=== PATIENT | female | born 1965 | race Caucasian/White ===

== ENCOUNTER 2021-12-31 20:33 | Observation (INO) | payer OTHER ==
[2021-12-31 21:01] LABS: Basophils # (A) 0.1 k/uL (0-0.2); Basophils % (A) 1 %; Eosinophils # (A) 1.5 k/uL (0-0.7); Eosinophils % (A) 13 %; HCT 42.3 % (34.0-46.0); HGB 14.1 gm/dL (11.4-16.0); Lymphocytes # (A) 2.8 k/uL (1.0-4.8); Lymphocytes % (A) 26 %; MCH 28.6 pg (25.0-35.0); MCHC 33.3 g/dL (31.0-37.0); MCV 85.7 fL (80.0-100.0); Mean Platelet Volume 7.7; Monocytes # (A) 0.4 k/uL (0-1.0); Monocytes % (A) 3 %; Neutrophils # (A) 6.2 k/uL (1.3-7.7); Neutrophils % (A) 56 %; Platelet Count 377 k/uL (150-450); RBC 4.94 m/uL (3.80-5.40); RDW 13.3 % (11.5-15.5)
[2021-12-31 21:09] LABS: Albumin 4.4 g/dL (3.5-5.0); Calcium 9.8 mg/dL (8.4-10.2); Magnesium 1.8 mg/dL (1.6-2.3); Potassium 3.2 mmol/L (3.5-5.1); Total Bilirubin 0.5 mg/dL (0.2-1.3); Total Protein 7.4 g/dL (6.3-8.2)
--- NOTE | 2021-12-31 21:19 | ED ---
General Adult HPI - General Chief complaint: Chest Pain Stated complaint: Chest Pain Time Seen by Provider: 12/31/21 20:36 Source: patient, EMS, RN notes reviewed, old records reviewed Mode of arrival: EMS Limitations: no limitations - History of Present Illness Initial comments: 56-year-old female presenting with an episode of chest pain. Patient was at rest at home when she developed substernal chest pressure and pain. This radiated to both of her shoulders. Was associated with nausea and diaphoresis. She was given aspirin nitroglycerin during transport and pain is improved at the time my evaluation. She states she feels almost completely normal now. She has no previous history of CAD. She is a nondiabetic, nonsmoker. - Related Data Allergies Allergy/AdvReac Type Severity Reaction Status Date / Time No Known Allergies Allergy Verified 12/31/21 20:55 Review of Systems ROS Statement: Those systems with pertinent positive or pertinent negative responses have been documented in the HPI. ROS Other: All systems not noted in ROS Statement are negative. Past Medical History Past Medical History: No Reported History History of Any Multi-Drug Resistant Organisms: None Reported Past Surgical History: Cholecystectomy, Hysterectomy Past Psychological History: Depression Smoking Status: Never smoker Past Alcohol Use History: None Reported Past Drug Use History: None Reported General Exam Limitations: no limitations General appearance: alert, in no apparent distress Head exam: Present: atraumatic, normocephalic Eye exam: Present: normal appearance, PERRL ENT exam: Present: normal exam Neck exam: Present: normal inspection. Absent: tenderness, meningismus Respiratory exam: Present: normal lung sounds bilaterally. Absent: respiratory distress, wheezes Cardiovascular Exam: Present: regular rate, normal rhythm GI/Abdominal exam: Present: soft. Absent: distended, tenderness Extremities exam: Present: normal inspection, normal capillary refill. Absent: pedal edema Neurological exam: Present: alert, oriented X3, CN II-XII intact. Absent: motor sensory deficit Psychiatric exam: Present: normal affect, normal mood Skin exam: Present: warm, dry, intact. Absent: cyanosis, diaphoretic Course Vital Signs 12/31/21 20:52 Temperature 98.2 F Pulse Rate 77 Respiratory 16 Rate Blood Pressure 154/100 O2 Sat by Pulse 95 Oximetry EKG Findings - EKG Comments: EKG Findings:: EKG: Sinus rhythm, incomplete right bundle-branch block, rate of 84, NC interval 136, QRS duration 94, QTC 447, no ST segment elevation. Medical Decision Making - Medical Decision Making 56 yo female presents with an episode of substernal chest pain. Pain has typical features. Resolved with time my evaluation. EKG is sinus rhythm without ST segment elevation. Chest x-ray clear. She has relatively normal laboratory testing. Negative initial troponin, negative d-dimer. Patient's pain began just prior to arrival. She will be kept in observation for serial cardiac enzymes, telemetry, cardiology consultation, case discussed with Dr. Flores - Lab Data Result diagrams: 12/31/21 20:46 12/31/21 20:46 Lab Results 12/31/21 12/31/21 12/31/21 Range/Units 20:46 20:46 20:46 WBC 11.0 H (3.8-10.6) k/uL RBC 4.94 (3.80-5.40) m/uL Hgb 14.1 (11.4-16.0) gm/dL Hct 42.3 (34.0-46.0) % MCV 85.7 (80.0-100.0) fL MCH 28.6 (25.0-35.0) pg MCHC 33.3 (31.0-37.0) g/dL RDW 13.3 (11.5-15.5) % Plt Count 377 (150-450) k/uL MPV 7.7 Neutrophils % 56 % Lymphocytes % 26 % Monocytes % 3 % Eosinophils % 13 % Basophils % 1 % Neutrophils # 6.2 (1.3-7.7) k/uL Lymphocytes # 2.8 (1.0-4.8) k/uL Monocytes # 0.4 (0-1.0) k/uL Eosinophils # 1.5 H (0-0.7) k/uL Basophils # 0.1 (0-0.2) k/uL PT 10.8 (9.0-12.0) sec INR 1.0 (<1.2) APTT 21.5 L (22.0-30.0) sec D-Dimer 0.21 (<0.60) mg/L FEU Sodium 136 L (137-145) mmol/L Potassium 3.2 L (3.5-5.1) mmol/L Chloride 105 (98-107) mmol/L Carbon Dioxide 19 L (22-30) mmol/L Anion Gap 12 mmol/L BUN 16 (7-17) mg/dL Creatinine 1.00 (0.52-1.04) mg/dL Est GFR (CKD-EPI)AfAm 73 (>60 ml/min/1.73 sqM) Est GFR (CKD-EPI)NonAf 64 (>60 ml/min/1.73 sqM) Glucose 146 H (74-99) mg/dL Calcium 9.8 (8.4-10.2) mg/dL Magnesium 1.8 (1.6-2.3) mg/dL Total Bilirubin 0.5 (0.2-1.3) mg/dL AST 40 H (14-36) U/L ALT 71 H (4-34) U/L Alkaline Phosphatase 98 (38-126) U/L Troponin I (0.000-0.034) ng/mL Total Protein 7.4 (6.3-8.2) g/dL Albumin 4.4 (3.5-5.0) g/dL Lipase 148 (23-300) U/L 12/31/21 Range/Units 20:46 WBC (3.8-10.6) k/uL RBC (3.80-5.40) m/uL Hgb (11.4-16.0) gm/dL Hct (34.0-46.0) % MCV (80.0-100.0) fL MCH (25.0-35.0) pg MCHC (31.0-37.0) g/dL RDW (11.5-15.5) % Plt Count (150-450) k/uL MPV Neutrophils % % Lymphocytes % % Monocytes % % Eosinophils % % Basophils % % Neutrophils # (1.3-7.7) k/uL Lymphocytes # (1.0-4.8) k/uL Monocytes # (0-1.0) k/uL Eosinophils # (0-0.7) k/uL Basophils # (0-0.2) k/uL PT (9.0-12.0) sec INR (<1.2) APTT (22.0-30.0) sec D-Dimer (<0.60) mg/L FEU Sodium (137-145) mmol/L Potassium (3.5-5.1) mmol/L Chloride (98-107) mmol/L Carbon Dioxide (22-30) mmol/L Anion Gap mmol/L BUN (7-17) mg/dL Creatinine (0.52-1.04) mg/dL Est GFR (CKD-EPI)AfAm (>60 ml/min/1.73 sqM) Est GFR (CKD-EPI)NonAf (>60 ml/min/1.73 sqM) Glucose (74-99) mg/dL Calcium (8.4-10.2) mg/dL Magnesium (1.6-2.3) mg/dL Total Bilirubin (0.2-1.3) mg/dL AST (14-36) U/L ALT (4-34) U/L Alkaline Phosphatase (38-126) U/L Troponin I <0.012 (0.000-0.034) ng/mL Total Protein (6.3-8.2) g/dL Albumin (3.5-5.0) g/dL Lipase (23-300) U/L Disposition Clinical Impression: Chest pain Disposition: ADMITTED IP TO THIS [facility] Condition: Stable Is patient prescribed a controlled substance at d/c from ED?: No Referrals: None,Stated [Primary Care Provider] - 1-2 days Decision to Admit Reason: Admit from EC Decision Date: 12/31/21 Decision Time: 21:44
[2021-12-31 21:20] LABS: Partial Thromboplastin Time 21.5 sec (22.0-30.0); Prothrombin Time 10.8 sec (9.0-12.0)
--- NOTE | 2021-12-31 21:24 | XR ---
EXAMINATION TYPE: XR chest 2V DATE OF EXAM: 12/31/2021 COMPARISON: NONE HISTORY: Chest pain TECHNIQUE: 2 views FINDINGS: There is mild subsegmental atelectasis in the mid and lower lung cates. Heart size is norm al. There are no hilar masses. There are chest leads. Costophrenic angles are clear. IMPRESSION: Subsegmental atelectasis. Normal heart.
[2021-12-31] MEDS ORDERED: NALOXONE 0.4 MG/ML 1 ML VIAL IV PRN (21:36)
[2021-12-31] MEDS ORDERED: ONDANSETRON 4 MG/2 ML VIAL IVP PRN (21:36)
[2021-12-31] MEDS ORDERED: MORPHINE SULFATE 4 MG/ML SYRINGE IV PRN (21:36)
[2021-12-31] MEDS ORDERED: ACETAMINOPHEN TAB 325 MG TAB PO PRN (21:36)
--- NOTE | 2022-01-01 02:12 | P.HPIM ---
History of Present Illness H&P Date: 01/01/22 Patient is a 56-year-old female with a distant tobacco abuse history who presented to the emergency room with complaints of chest discomfort. The patient reports that she was at home and had completed her dinner with her family when she suddenly developed a pressure-like squeezing substernal chest discomfort, 10 out of 10, nonpleuritic, radiating to her shoulders, with associated diaphoresis, nausea, and lightheadedness. The discomfort lasted for roughly 10 minutes and then resolved spontaneously. She denied associated shortness of breath or palpitations. She denied any prior history of such pain. Denied any history of heart disease. He reports feeling back to her baseline at the time of evaluation. She was given aspirin as well as sublingual nitroglycerin en-route to the hospital which reportedly didn't improve her symptoms. She reports having smoked a few cigarettes a day for 10 years in her 20s and 30s. She denied any significant family history of heart disease. Denied experiencing fever, chills, cough, abdominal pain, diarrhea. EKG in the emergency room revealed sinus rhythm at 84 bpm with an incomplete right bundle- branch block as well as T-wave inversions in leads V1 and V2. Laboratory evaluation revealed a leukocytosis with WBC count 11.0, potassium 3.2, glucose 146, d-dimer 0.01, troponin less than 0.012, AST 40, and ALT 71. Review of systems: Pertinent positives and negatives as discussed in HPI, a complete review of systems was performed and all other systems are negative. Physical examination: General: non toxic, no distress, appears at stated age, obese Derm: no unusual rashes/lesions no unusual ecchymoses, warm, dry Head: atraumatic, normocephalic, symmetric Eyes: EOMI, no lid lag, anicteric sclera, pupils equal round reactive to light ENT: Nose and ears atraumatic, no thrush, no pharyngeal erythema Neck: No thyromegaly, no cervical lymphadenopathy, trachea midline, supple Mouth: no lip lesion, mucus membranes moist Cardiovascular: S1S2 reg, no murmur, positive posterior tibial pulse bilateral, no edema, capillary refill less than 2 seconds Lungs: CTA bilateral, no rhonchi, no rales , no accessory muscle use Abdominal: soft, nontender to palpation, no guarding, no appreciable organomegaly, normal bowel sounds Ext: no gross muscle atrophy, muscle strength 5 out of 5 in all 4 extremities grossly, no contractures, Neuro: CN II-XI grossly intact, light touch intact all 4 extremities, finger to nose within normal limits, Psych: Alert, oriented, appropriate affect Assessment/plan Chest pain, rule out ACS -Cardiology consulted -Trend troponin -Cardiac monitoring -Continue with aspirin and lipitor Hypokalemia -Replace and monitor Leukocytosis -No signs of active infection at this time -Likely due to acute stressor Abnormal LFTs -Monitor for now -Denied any alcohol use DVT prophylaxis -Heparin subcu The patient is admitted with an anticipated less than 2 midnight stay for evaluation of chest pain CODE STATUS: Full Code Discussed with: Patient Anticipated discharge date: in am Anticipated discharge place: Home Past Medical History Past Medical History: No Reported History History of Any Multi-Drug Resistant Organisms: None Reported Past Surgical History: Cholecystectomy, Hysterectomy Past Psychological History: Depression Smoking Status: Never smoker Past Alcohol Use History: None Reported Past Drug Use History: None Reported Medications and Allergies Home Medications Medication Instructions Recorded Confirmed Type DULoxetine HCL [Cymbalta] 30 mg PO HS 12/31/21 12/31/21 History Allergies Allergy/AdvReac Type Severity Reaction Status Date / Time No Known Allergies Allergy Verified 12/31/21 22:48 Physical Exam Vitals: Vital Signs Temp Pulse Resp BP Pulse Ox 12/31/21 23:36 72 16 128/86 95 12/31/21 22:02 92 18 141/93 92 L 12/31/21 20:52 98.2 F 77 16 154/100 95 Intake and Output 12/31/21 12/31/21 01/01/22 14:59 22:59 06:59 Other: Weight 99.79 kg Results CBC & Chem 7: 12/31/21 20:46 12/31/21 20:46 Labs: Abnormal Lab Results - Last 24 Hours (Table) 12/31/21 12/31/21 12/31/21 Range/Units 20:46 20:46 20:46 WBC 11.0 H (3.8-10.6) k/uL Eosinophils # 1.5 H (0-0.7) k/uL APTT 21.5 L (22.0-30.0) sec Sodium 136 L (137-145) mmol/L Potassium 3.2 L (3.5-5.1) mmol/L Carbon Dioxide 19 L (22-30) mmol/L Glucose 146 H (74-99) mg/dL AST 40 H (14-36) U/L ALT 71 H (4-34) U/L
[2022-01-01] MEDS ORDERED: POTASSIUM CHLORIDE ER 20 MEQ TAB.ER PO STA (02:13)
[2022-01-01 02:53] LABS: HCT 43.3 % (34.0-46.0); HGB 14.2 gm/dL (11.4-16.0); MCH 28.4 pg (25.0-35.0); MCHC 32.9 g/dL (31.0-37.0); MCV 86.6 fL (80.0-100.0); Mean Platelet Volume 7.7; Platelet Count 376 k/uL (150-450); RDW 12.9 % (11.5-15.5)
[2022-01-01] MEDS ORDERED: HEPARIN SODIUM,PORCINE/PF 5,000 UNIT/0.5 ML SYRINGE SQ SCH (08:00)
[2022-01-01] MEDS ORDERED: ASPIRIN 81 MG PO SCH (09:00)
[2022-01-01 09:36] LABS: ALT 77 U/L (8-44); AST 27 U/L (13-35); Albumin 4.4 g/dL (3.8-4.9); Albumin/Globulin Ratio 1.83 (1.60-3.17); Alkaline Phosphatase 115 U/L (41-126); Blood Urea Nitrogen 16.5 mg/dL (9.0-27.0); Calcium 10.1 mg/dL (8.7-10.3); Carbon Dioxide 24.4 mmol/L (20.0-27.5); Chloride 101 mmol/L (96-109); Chol/HDL Ratio 4.49 Ratio; Globulin 2.4 g/dL (1.6-3.3); Glucose 117 mg/dL (70-110); LDL Cholesterol,Calculated 141.3 mg/dL (0.0-131.0); Non-African American GFR(CKD) 56.1 (60.0-200.0); Potassium 3.5 mmol/L (3.5-5.5); Sodium 139 mmol/L (135-145); Total Bilirubin <0.15 mg/dL (0.30-1.20); Total Protein 6.8 g/dL (6.2-8.2)
--- NOTE | 2022-01-01 09:51 | P.CRDCN ---
History of Present Illness Consult date: 01/01/22 History of present illness: HISTORY OF PRESENT ILLNESS: This is a 56-year-old female with a past medical history significant for depression and cholecystectomy. Patient does not follow with a motor lodge clerk. We have been asked to see the patient in consultation for chest pain. Patient examined at the bedside. Patient states yesterday she had a hamburger for dinner when shortly afterwards she began having abdominal pain. She states the pain then went up and her chest. She describes the pain as a tight squeezing sensation. She reports feeling bloated and nauseated. She also reported feeling short of breath and diaphoretic. She thought she was going to throw up so she went into the bathroom and called EMS. She states that when EMS got there they put oxygen on her and she began to feel better. At the time of examination this morning, the patient denies any chest pain or pressure. EKG reveals sinus mechanism with no signs of acute ischemia Chest xray subsegmental atelectasis. Normal heart. Laboratory data: WBC 11.0. Hemoglobin 14.2. Platelet count 376. D-dimer 0.21. Sodium 139. Potassium 3.5. BUN 16. Creatinine 1.1. Troponin negative 3. Current home cardiac medications include none REVIEW OF SYSTEMS: At the time of my exam: CONSTITUTIONAL: Denies fever or chills. HEENT: Denies blurred vision, vision changes, or eye pain. Denies hemoptysis CARDIOVASCULAR: Denies chest pain. Denies orthopnea. Denies PND. Denies palpitations RESPIRATORY: Denies shortness of breath. GASTROINTESTINAL: Denies abdominal pain. Denies nausea or vomiting. HEMATOLOGIC: Denies bleeding disorders. GENITOURINARY: Denies any blood in urine. SKIN: Denies pruitis. Denies rash. PHYSICAL EXAM: VITAL SIGNS: Reviewed. GENERAL: Well-developed in no acute distress. HEENT: Head is normocephalic. Pupils are equal, round. Sclerae anicteric. Mucous membranes of the mouth are moist. Neck supple. No JVD or thyromegaly LUNGS: Respirations even and unlabored. Lungs essentially clear to auscultation bilaterally. HEART: Regular rate and rhythm. S1 and S2 heard. ABDOMEN: Soft. Nondistended. Nontender. EXTREMITIES: Normal range of motion. No clubbing or cyanosis. Peripheral pulses intact. No lower extremity edema NEUROLOGIC: Awake and alert. Oriented x 3. ASSESSMENT: Chest pain Hyperlipidemia Depression History of cholecystectomy PLAN: An acute coronary event has been ruled out Begin atorvastatin 20 mg daily Obtain 2-D echo to assess cardiac structure and function Patient to undergo stress echo today Further recommendations pending patient course Nurse practitioner note has been reviewed by physician. Signing provider agrees with the documented findings, assessment, and plan of care. Past Medical History Past Medical History: No Reported History History of Any Multi-Drug Resistant Organisms: None Reported Past Surgical History: Cholecystectomy, Hysterectomy Past Psychological History: Depression Smoking Status: Never smoker Past Alcohol Use History: None Reported Past Drug Use History: None Reported Medications and Allergies Home Medications Medication Instructions Recorded Confirmed Type DULoxetine HCL [Cymbalta] 30 mg PO HS 12/31/21 12/31/21 History Allergies Allergy/AdvReac Type Severity Reaction Status Date / Time No Known Allergies Allergy Verified 12/31/21 22:48 Physical Exam Vitals: Vital Signs Temp Pulse Resp BP Pulse Ox 01/01/22 04:22 92 16 111/85 98 12/31/21 23:36 72 16 128/86 95 12/31/21 22:02 92 18 141/93 92 L 12/31/21 20:52 98.2 F 77 16 154/100 95 Intake and Output 12/31/21 01/01/22 01/01/22 22:59 06:59 14:59 Other: Weight 99.79 kg Results 01/01/22 02:39 01/01/22 02:39 Cardiac Enzymes 12/31/21 12/31/21 01/01/22 Range/Units 20:46 20:46 00:12 AST 40 H (14-36) U/L Troponin I <0.012 <0.012 (0.000-0.034) ng/mL 01/01/22 Range/Units 02:39 AST (14-36) U/L Troponin I <0.012 (0.000-0.034) ng/mL Coagulation 12/31/21 Range/Units 20:46 PT 10.8 (9.0-12.0) sec APTT 21.5 L (22.0-30.0) sec CBC 12/31/21 01/01/22 Range/Units 20:46 02:39 WBC 11.0 H 11.0 H (3.8-10.6) k/uL RBC 4.94 5.00 (3.80-5.40) m/uL Hgb 14.1 14.2 (11.4-16.0) gm/dL Hct 42.3 43.3 (34.0-46.0) % Plt Count 377 376 (150-450) k/uL Comprehensive Metabolic Panel 12/31/21 Range/Units 20:46 Sodium 136 L (137-145) mmol/L Potassium 3.2 L (3.5-5.1) mmol/L Chloride 105 (98-107) mmol/L Carbon Dioxide 19 L (22-30) mmol/L BUN 16 (7-17) mg/dL Creatinine 1.00 (0.52-1.04) mg/dL Glucose 146 H (74-99) mg/dL Calcium 9.8 (8.4-10.2) mg/dL AST 40 H (14-36) U/L ALT 71 H (4-34) U/L Alkaline Phosphatase 98 (38-126) U/L Total Protein 7.4 (6.3-8.2) g/dL Albumin 4.4 (3.5-5.0) g/dL Current Medications Generic Name Dose Route Start Last Admin Trade Name Freq PRN Reason Stop Dose Admin Acetaminophen 650 mg 12/31/21 21:36 Acetaminophen Tab 325 Mg Tab PO Q6HR PRN Mild Pain or Fever > 100.5 Aspirin 81 mg 01/01/22 09:00 Aspirin 81 Mg PO DAILY [facility] Heparin Sodium (Porcine) 5,000 unit 01/01/22 08:00 Heparin Sodium,Porcine/Pf 5,000 Unit/0.5 Ml Syringe SQ Q8HR [facility] Morphine Sulfate 4 mg 12/31/21 21:36 Morphine Sulfate 4 Mg/Ml Syringe IV Q4HR PRN Severe Pain Naloxone HCl 0.2 mg 12/31/21 21:36 Naloxone 0.4 Mg/Ml 1 Ml Vial IV Q2M PRN Opioid Reversal Ondansetron HCl 4 mg 12/31/21 21:36 Ondansetron 4 Mg/2 Ml Vial IVP Q8HR PRN Nausea And Vomiting Intake and Output 12/31/21 01/01/22 01/01/22 22:59 06:59 14:59 Other: Weight 99.79 kg 01/01/22 02:39 12/31/21 20:46
[2022-01-01 10:05] VITALS: RESP 18
--- NOTE | 2022-01-01 11:11 | P.PN ---
<Rasta Rankin - Last Filed: 01/01/22 11:14> Subjective Progress Note Date: 01/01/22 Hospital course: Patient is a very pleasant 56-year-old female with a past medical history of depression whom presented to the emergency department on 12/31/21 with a chief complaint of chest pain. She reports while sitting on the couch watching a movie with her she began feeling an upset feeling in her stomach accompanied by a twisting pressure-like sensation to the middle of her chest as though somebody was squeezing her from the inside accompanied by nausea, shortness of breath, and diaphoresis. Patient reports this pain lasted approximately 3 minutes before she knew something was absolutely wrong as she reports feeling as though she was going to vomit and passed out all at the same time and this is when her called EMS. Patient states after EMS arrived and placed her on some oxygen the pain in her chest began to subside and she began to feel better. Patient reports complete resolution of pain or any other complaints since arrival to the emergency department. Patient denies having a cardiac history or being seen previously by a fly frame tender. She also reports that she does not follow consistently with a primary care doctor. In the emergency department patient underwent evaluation. She was found to have slight leukocytosis with WBC count of 11.0 and hypokalemia with potassium of 3.2. Chest x-ray revealing subsegmental atelectasis with no signs of acute cardiopulmonary process. EKG showing normal sinus rhythm at 84 bpm with no noted T wave or ST abnormality showing no signs of acute ischemia. Troponins trended 3 all resulting in less than 0.012. Patient has been admitted under our services with consultation to cardiology. Patient currently reports having a slight headache, but remains free from chest pain or any other complaints including dizziness, lightheadedness, changes in vision or hearing, palpitations, shortness of breath, abdominal pain, nausea, vomiting, or experiencing any numbness/tingling/weakness in her extremities. Physical exam: Vital signs reviewed and stable. General: Nontoxic, no distress and appears stated age. Derm: Skin warm and dry, normal coloration for ethnicity. Head: Atraumatic, normocephalic and symmetric. Eyes: EOMs intact, no lid lag, and anicteric sclera Mouth: no lip lesions, mucus membranes moist Cardiovascular: regular rate and rhythm with normal S1S2, no murmur, positive posterior tibial pulses bilaterally, and cap refill < 2 seconds. Lungs: Respirations even, regular, and unlabored on room air. Lungs CTA bilaterally, no rhonchi, no rales, no wheezing, and no accessory muscle usage. Abdominal: soft, nontender to palpation, no guarding, no appreciable organomegaly Ext: ROM intact. No gross muscle atrophy, no edema, no contractures Neuro: Speech clear, face symmetrical and CN II-XII grossly intact with no noted focal neuro deficits Psych: Alert and oriented to person, place, time, and situation. Appropriate and pleasant affect. Assessment and Plan of Care: Chest pain, rule out ACS -Troponins trended 3 all resulting less than 0.012. -Hemoglobin A1c 6.2% -Lipid profile revealing an elevated total cholesterol of 209 and an elevated LDL of 141.3. -Patient to continue aspirin and atorvastatin. -Cardiology following, plans for stress test later today. -Echocardiogram to be completed -Telemetry monitoring Hyperlipidemia -Newly diagnosed with total cholesterol of 209 and LDL of 141.3. -Patient started on atorvastatin 40 mg daily along with aspirin 81 mg daily. Depression -Continue daily medication regimen with the Loxitane 30 mg nightly. Hypokalemia, resolved. Abnormal LFTs, improving CODE STATUS: Full code DVT prophylaxis: Heparin Discussed with: Patient and RN Anticipated discharge date: 1-2 days pending results of stress test and recommendations from cardiology Anticipated discharge place: home A total of 35 minutes was spent on the care of this complex patient more than 50% of the time was spent in counseling and care coordination. Objective - Vital Signs Vital signs: Vital Signs Temp 98.2 F 12/31/21 20:52 Pulse 92 01/01/22 04:22 Resp 16 01/01/22 04:22 BP 111/85 01/01/22 04:22 Pulse Ox 98 01/01/22 04:22 Intake & Output 12/31/21 01/01/22 01/01/22 18:59 06:59 18:59 Weight 99.79 kg - Labs CBC & Chem 7: 01/01/22 02:39 01/01/22 02:39 Labs: Abnormal Lab Results - Last 24 Hours (Table) 12/31/21 12/31/21 12/31/21 Range/Units 20:46 20:46 20:46 WBC 11.0 H (3.8-10.6) k/uL Eosinophils # 1.5 H (0-0.7) k/uL APTT 21.5 L (22.0-30.0) sec Sodium 136 L (137-145) mmol/L Potassium 3.2 L (3.5-5.1) mmol/L Carbon Dioxide 19 L (22-30) mmol/L Glucose 146 H (74-99) mg/dL AST 40 H (14-36) U/L ALT 71 H (4-34) U/L 01/01/22 Range/Units 02:39 WBC 11.0 H (3.8-10.6) k/uL Eosinophils # (0-0.7) k/uL APTT (22.0-30.0) sec Sodium (137-145) mmol/L Potassium (3.5-5.1) mmol/L Carbon Dioxide (22-30) mmol/L Glucose (74-99) mg/dL AST (14-36) U/L ALT (4-34) U/L <Ashley Garcia - Last Filed: 01/02/22 17:15> Subjective Rasta Rankin NP rendered care for this patient independently, reviewed the findings and plan as documented in the note above. I did not physically speak with or examine the patient on this date. Objective - Vital Signs Vital signs: Vital Signs Temp 98.7 F 01/01/22 12:47 Pulse 99 01/01/22 12:47 Resp 18 01/01/22 12:47 BP 153/100 01/01/22 12:47 Pulse Ox 95 01/01/22 12:47 - Labs CBC & Chem 7: 01/01/22 02:39 01/01/22 02:39
--- NOTE | 2022-01-01 11:49 | ECHOF ---
Referral Reason: MEASUREMENTS -------- HEIGHT: 170.2 cm WEIGHT: 99.8 kg BP: RVIDd: 2.1 cm (< 3.3) IVSd: 1.2 cm (0.6 - 1.1) LVIDd: 3.3 cm (3.9 - 5.3) LVPWd: 1.2 cm (0.6 - 1.1) IVSs: 1.7 cm LVIDs: 1.5 cm LVPWs: 1.6 cm LAESV Index (A-L): 23.69 ml/m Ao Diam: 3.0 cm (2.0 - 3.7) AV Cusp: 1.9 cm (1.5 - 2.6) LA Diam: 3.0 cm (2.7 - 3.8) MV EXCURSION: 14.056 mm (> 18.000) MV EF SLOPE: 77 mm/s (70 - 150) EPSS: 1.5 cm MV E Seb: 0.71 m/s MV DecT: 222 ms MV A Seb: 0.94 m/s MV E/A Ratio: 0.75 RAP: 5.00 mmHg RVSP: 12.23 mmHg FINDINGS -------- Sinus rhythm. This was a technically adequate study. The left ventricular size is normal. There is mild concentric left ventricular hypertrophy. Overa ll left ventricular systolic function is normal with, an EF between 55 - 60 %. The diastolic fillin g pattern is normal for the age of the patient 12.65. The right ventricle is normal in size. Normal LA size by volume 22+/-6 ml/m2. The right atrial size is normal. The aortic valve is trileaflet, and appears structurally normal. No aortic stenosis or regurgitation. The mitral valve is normal. There is trace mitral regurgitation. The tricuspid valve appears structurally normal. Trace tricuspid regurgitation present. Right faye tricular systolic pressure is normal at < 35 mmHg. There is no pulmonic regurgitation present. The aortic root size is normal. Normal inferior vena cava with normal inspiratory collapse consistent with estimated right atrial pre ssure of 5 mmHg. There is no pericardial effusion. CONCLUSIONS -------- 1. There is mild concentric left ventricular hypertrophy. 2. Overall left ventricular systolic function is normal with, an EF between 55 - 60 %. 3. Normal LA size by volume 22+/-6 ml/m2. 4. The aortic valve is trileaflet, and appears structurally normal. No aortic stenosis or regurgitati on. 5. There is trace mitral regurgitation. 6. Trace tricuspid regurgitation present. 7. There is no pericardial effusion. DEPARTMENT STORE SALESPERSON: April Diana RDCS
[2022-01-01 12:50] VITALS: BP 153/100; PULSE 99; TEMP 98.7
--- NOTE | 2022-01-01 13:10 | P.DS ---
<Rasta Rankin - Last Filed: 01/01/22 13:15> Providers Expected date of discharge: 01/01/22 Hospital Course: Discharge Diagnosis: Chest pain, ACS ruled out Hyperlipidemia, newly diagnosed being discharged home on atorvastatin 40 mg daily Depression Hypokalemia, resolved. Elevated A1c 6.2%, recommend maintaining strict heart healthy and carb consistent diet and repeating labs. If hemoglobin A1c showing no improvement patient will need to begin oral hypoglycemic medications. Abnormal LFTs, improved Hospital Course: Patient is a very pleasant 56-year-old female with a past medical history of depression whom presented to the emergency department on 12/31/21 with a chief complaint of chest pain. She reports while sitting on the couch watching a movie with her she began feeling an upset feeling in her stomach accompanied by a twisting pressure-like sensation to the middle of her chest as though somebody was squeezing her from the inside accompanied by nausea, shortness of breath, and diaphoresis. Patient reports this pain lasted approximately 3 minutes before she knew something was absolutely wrong as she reports feeling as though she was going to vomit and passed out all at the same time and this is when her called EMS. Patient states after EMS arrived and placed her on some oxygen the pain in her chest began to subside and she began to feel better. Patient reports complete resolution of pain or any other complaints since arrival to the emergency department. 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 She also reports th at she does not follow consistently with a primary care doctor. In the emergency department patient underwent evaluation. She was found to have slight leukocytosis with WBC count of 11.0 and hypokalemia with potassium of 3.2. Chest x-ray revealing subsegmental atelectasis with no signs of acute cardiopulmonary process. EKG showing normal sinus rhythm at 84 bpm with no noted T wave or ST abnormality showing no signs of acute ischemia. Troponins trended 3 all resulting in less than 0.012. Echocardiogram completed showing an EF of 55-60% and no significant valvular abnormalities. Patient underwent cardiac stress test, received notification from RN that cardiology has cleared patient stating normal stress test. Patient is medically stable for discharge at this time. She is being discharged home on atorvastatin 40 mg nightly and educated on importance of heart healthy and carb consistent diet as hemoglobin A1c was elevated at 6.2%. Recommend patient maintaining strict heart healthy and carb consistent diet and have repeat hemoglobin A1c drawn by PCP we are recommending her to in 3-6 months. Patient medically stable for discharge, follow-up with recommended PCP as well as cardiology. A total of 40 minutes of time were spent preparing this complex discharge summary. Patient Condition at Discharge: Stable Plan - Discharge Summary New Discharge Prescriptions: New Atorvastatin [Lipitor] 40 mg PO HS 30 Days #30 tablet Continue DULoxetine HCL [Cymbalta] 30 mg PO HS Discharge Medication List DULoxetine HCL [Cymbalta] 30 mg PO HS 12/31/21 [History] Atorvastatin [Lipitor] 40 mg PO HS 30 Days #30 tablet 01/01/22 [Rx] Follow up Appointment(s)/Referral(s): Nolan Gill MD [STAFF PHYSICIAN] - 1 Week Yahir Tyler [STAFF PHYSICIAN] - 1 Week Activity/Diet/Wound Care/Special Instructions: Activity: As tolerated. Take breaks as needed. Diet: Heart healthy and carb consistent diet. Avoid salts, or foods with hidden salts such as canned or boxed foods and frozen dinners. Extra salt makes your heart work harder and traps the fluid in your body for longer. Special Instructions: Take all of your medications as directed and remember to keep all of your doctor's appointments and follow-up as needed. Your hemoglobin A1c was elevated at 6.2%, we are recommend maintaining a strict heart healthy and carb consistent diet and repeating labs with your primary doctor, we are referring you to. If your hemoglobin A1c shows no improvement, you will need to begin oral hypoglycemic medications for treatment of diabetes. Your cholesterol levels were elevated with a total cholesterol of 209 and an LDL of 141.3. Your being discharged home on atorvastatin 40 mg nightly. Again recommend heart healthy and carb consistent diet which will also aid in improvement of your cholesterol levels. Thank you for allowing us to participate in your care, it was truly a pleasure having you for our patient!!! Discharge Disposition: HOME SELF-CARE <Ashley Garcia - Last Filed: 01/01/22 18:48> Providers Date of admission: 12/31/21 21:36 Attending physician: Primitivo Flores MD Primary care physician: Stated None Hospital Course: Rasta Rankin NP rendered care for this patient independently, reviewed the findings and plan as documented in the note above. I did not physically speak with or examine the patient on this date.
--- NOTE | 2022-01-01 15:40 | ECHOS ---
STRESS ECHOCARDIOGRAM INDICATIONS: Chest pain BASELINE HEART RATE: 5'7" BASELINE BLOOD PRESSURE: 119/72 MAXIMUM HEART RATE: 160 MAXIMUM BLOOD PRESSURE: 201/105 85% MPHR: 139 100% MPHR: 164 METS: 8.5 MAXIMUM STAGE REACHED: III TOTAL EXERCISE TIME: 7:18 CLINICAL INFORMATION: Baseline rhythm is a sinus mechanism, rate of 85, early progression. Baseline blood pressure 119/72 mmHg. Patient exercised on Chris protocol for 7 minutes 18 seconds, achieving a peak rate of 166 beats per minute, which is above 100% maximum predicted heart rate. Peak blood pressure 201/105 mmHg. Test was terminated because of fatigue. There was no chest pain. Electrocardiograph monitoring revealed rare single PVCs. There was no evidence of diagnostic ischemic ST deviation. FINDINGS: Baseline echocardiogram revealed normal wall thickening and motion. At peak exercise there was normal wall motion augmentation with no hypokinesis or dyskinesis. CONCLUSION: 1. Average exercise tolerance with normal electrocardiograph response to exercise and rare PVCs. 2. Normal stress echocardiogram with no evidence of stress-induced ischemia. MMODL / IJN: [id number] /
[2022-01-01] MEDS ORDERED: ATORVASTATIN 20 MG TAB PO SCH (21:00)
[2022-01-01] MEDS ORDERED: DULoxetine HCL 30 MG CAPSULE.DR PO SCH (21:00)
== END 2022-01-01 13:55 | disposition home or self-care (01) ==
LOC: EC 20:33 → 1SOBS 21:36 → 6NMEDSUR 01-01 01:22
PROVIDERS: ADMIT Internal Medicine; ATTEND Internal Medicine
DX: R07.2 Precordial pain (principal); E78.5 Hyperlipidemia, unspecified; F32.A Depression, unspecified; E87.6 Hypokalemia; R06.02 Shortness of breath; D72.829 Elevated white blood cell count, unspecified; J98.11 Atelectasis; Z20.822 Contact with and (suspected) exposure to COVID-19; R11.2 Nausea with vomiting, unspecified; R42 Dizziness and giddiness; R61 Generalized hyperhidrosis; R79.89 Other specified abnormal findings of blood chemistry; Z90.710 Acquired absence of both cervix and uterus; Z90.49 Acquired absence of other specified parts of digestive tract; Z87.891 Personal history of nicotine dependence; Z71.3 Dietary counseling and surveillance
CPT/HCPCS: 99285; 96372; 36415; 93005; 93306; 85379; 80061; 80053 ×2; 83690; 83735; 84484 ×2; 85025; 85027; 85610; 85730; 83036; 87635; 71046; G0378 ×2; C8930; Q9950; J1644; 93351

== ENCOUNTER 2025-05-23 21:04 | Emergency (ER) | payer OTHER ==
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
[2025-05-23] MEDS: KETOROLAC 15 MG/ML 1 ML VIAL IM STA (22:47)
[2025-05-23] MEDS: HYDROmorphone 1 MG/ML 1 ML SYRINGE IM STA (22:48)
[2025-05-24] MEDS: ORPHENADRINE 30 MG/ML 2 ML VIAL IM STA (00:52)
--- NOTE | 2025-05-24 02:13 | CT ---
EXAM: CT Neck Without Intravenous Contrast CLINICAL HISTORY: ITS.REASON CT Reason: Fall, neck, left clavicle, left rib pain TECHNIQUE: Axial computed tomography images of the neck without intravenous contrast. CTDI is . 11.8 mGy and DLP is 348.2 mGy-cm. This CT exam was performed using one or more of the following dose reduction techniques: automated exposure control, adjustment of the mA and/or kV according to patient size, and/or use of iterative reconstruction technique. COMPARISON: No relevant prior studies available. FINDINGS: Oropharynx: Unremarkable. No significant tonsillar enlargement. Hypopharynx: Unremarkable. Larynx: Unremarkable. Normal epiglottis. Trachea: Unremarkable. Retropharyngeal space: Unremarkable. Submandibular/parotid glands: Unremarkable. Glands are normal in size. Thyroid: Unremarkable. No enlarged or calcified nodules. Bones/joints: No acute fracture. Soft tissues: Unremarkable. Vasculature: No acute findings. Lymph nodes: Unremarkable. No lymphadenopathy. Lung apices: Unremarkable as visualized. IMPRESSION: Normal neck CT. EXAM: CT Chest Without Intravenous Contrast CLINICAL HISTORY: ITS.REASON CT Reason: Fall, neck, left clavicle, left rib pain TECHNIQUE: Axial computed tomography images of the chest without intravenous contrast. CTDI is 11.5 mGy and DLP is 519.2 mGy-cm. This CT exam was performed using one or more of the following dose reduction techniques: automated exposure control, adjustment of the mA and/or kV according to patient size, and/or use of iterative reconstruction technique. COMPARISON: No relevant prior studies available. FINDINGS: Lungs: 1..5 cm ground-glass opacity right upper lobe. Pleural space: Unremarkable. No significant effusion. No pneumothorax. Heart: Unremarkable. No cardiomegaly. No significant pericardial effusion. No significant coronary artery calcifications. Bones/joints: Comminuted displaced distal left clavicular shaft fracture. Soft tissues: Unremarkable. Vasculature: Unremarkable. No thoracic aortic aneurysm. Lymph nodes: Unremarkable. No enlarged lymph nodes. Other findings: . IMPRESSION: Displaced comminuted fracture distal 1/3 of the left clavicle 1.5 cm ground-glass nodule right upper lobe. Fleischner Society Guidelines recommend follow-up chest CT at 6-12 months to confirm persistence. If stable, chest CT every 2 years until 5 years
[2025-05-24] MEDS: traMADol 50 MG STARTER PACK 3 TAB BTL PO STA (02:28)
[2025-05-24 03:03] VITALS: BP 148/91; PULSE 73; RESP 16; TEMP 98.4
== END 2025-05-24 02:30 | disposition home or self-care (01) ==
LOC: EC 21:04
DX: S42.032A Displaced fracture of lateral end of left clavicle, initial encounter for closed fracture (principal); R91.1 Solitary pulmonary nodule; V28.01XA Electric (assisted) bicycle driver injured in noncollision transport accident in nontraffic accident, initial encounter
CPT/HCPCS: 70490; 71250; 99284; 96372 ×3; L0120; J1171; J1885